=== PATIENT | female | born 1970 | race Caucasian/White ===

== ENCOUNTER 2018-01-07 11:41 | Emergency (ER) | payer OTHER ==
[2018-01-07 11:41] VITALS: BMI 39.4
[2018-01-07 11:55] VITALS: BP 161/77; PULSE 85; RESP 16; TEMP 98.1; O2SAT 98
--- NOTE | 2018-01-07 12:01 | ED PDOC ---
Arrival/HPI - General Chief Complaint: Foreign Body Time Seen by Provider: 01/07/18 11:51 Historian: Patient - History of Present Illness Narrative History of Present Illness (Text): 01/07/18 11:58 47yo female present with complaint of lodged cotton wool tip to her right ear x 2days. States she tried to remove it and couldn't. Complaining of pain to the ear. Denies fever, chills, discharge or bleeding from the ear. Past Medical History - Provider Review Nursing Documentation Reviewed: Yes - Infectious Disease Hx of Infectious Diseases: None - Reproductive Menopause: Yes - Cardiac Hx Cardiac Disorders: No - Pulmonary Hx Respiratory Disorders: No - Neurological Hx Neurological Disorder: No - HEENT Hx HEENT Disorder: No - Renal Hx Renal Disorder: No - Endocrine/Metabolic Hx Endocrine Disorders: No - Hematological/Oncological Hx Blood Disorders: Yes Hx Hepatitis C: Yes - Integumentary Hx Dermatological Disorder: No - Musculoskeletal/Rheumatological Hx Musculoskeletal Disorders: No - Gastrointestinal Hx Gastrointestinal Disorders: No - Genitourinary/Gynecological Hx Genitourinary Disorders: No - Psychiatric Hx Psychophysiologic Disorder: No Hx Substance Use: No - Anesthesia Hx Anesthesia: No Family/Social History - Physician Review Nursing Documentation Reviewed: Yes Family/Social History: Unknown Family HX Smoking Status: Never Smoked Hx Alcohol Use: No Hx Substance Use: No Allergies/Home Meds Allergies/Adverse Reactions: Allergies No Known Allergies Allergy (Verified 01/07/18 11:48) Review of Systems - Physician Review All systems were reviewed & negative as marked: Yes - Review of Systems Constitutional: Normal Eyes: Normal ENT: Other (Right ear pain/lodged FB) Respiratory: Normal Cardiovascular: Normal Gastrointestinal: Normal Genitourinary Female: Normal Musculoskeletal: Normal Skin: Normal Neurological: Normal Endocrine: Normal Hemo/Lymphatic: Normal Psychiatric: Normal Physical Exam Vital Signs Reviewed: Yes Vital Signs Temp Pulse Resp BP Pulse Ox 01/07/18 11:48 98.1 F 85 16 161/77 H 98 Temperature: Afebrile Blood Pressure: Normal Pulse: Regular Respiratory Rate: Normal Appearance: Positive for: Well-Appearing, Non-Toxic, Comfortable Pain Distress: None Mental Status: Positive for: Alert and Oriented X 3 - Systems Exam Head: Present: Atraumatic, Normocephalic Pupils: Present: PERRL Extroacular Muscles: Present: EOMI Conjunctiva: Present: Normal Ears: Present: Other (Cotton tip noted on right TM) Mouth: Present: Moist Mucous Membranes Neck: Present: Normal Range of Motion Respiratory/Chest: Present: Clear to Auscultation, Good Air Exchange. No: Respiratory Distress, Accessory Muscle Use Cardiovascular: Present: Regular Rate and Rhythm, Normal S1, S2. No: Murmurs Abdomen: No: Tenderness, Distention, Peritoneal Signs Back: Present: Normal Inspection Upper Extremity: Present: Normal Inspection. No: Cyanosis, Edema Lower Extremity: Present: Normal Inspection. No: Edema Neurological: Present: GCS=15, CN II-XII Intact, Speech Normal Skin: Present: Warm, Dry, Normal Color. No: Rashes Psychiatric: Present: Alert, Oriented x 3, Normal Insight, Normal Concentration Medical Decision Making ED Course and Treatment: 01/07/18 12:01 PT present for stated history. Cotton tip removed with small alligator clamp. No bleeding. No discharge noted. Pt have pain with manipulation of the right pinna and tenderness on palpation of posterior right ear. She will be DC home with cipro otic for super imposed otitis externa. Disposition/Present on Arrival - Present on Arrival Any Indicators Present on Arrival: No History of DVT/PE: No History of Uncontrolled Diabetes: No Urinary Catheter: No History of Decub. Ulcer: No History Surgical Site Infection Following: None - Disposition Have Diagnosis and Disposition been Completed?: Yes Diagnosis: Foreign body, Otitis externa Disposition: HOME/ ROUTINE Disposition Time: 12:05 Patient Plan: Discharge Condition: STABLE Discharge Instructions (ExitCare): Outer Ear Infection (DC) Additional Instructions: Apply drops as directed and follow up with your Doctor Return to Emergency department for any new or worsening symptoms Prescriptions: Ciprofloxacin/Dexamethasone [Ciprodex Otic] 75 drop BID #4 bottle Referrals: Tawanda Ma DO [Staff Provider] - Follow up with primary
== END 2018-01-07 12:23 | disposition home or self-care (01) ==
LOC: ED 11:41
DX: T16.1XXA Foreign body in right ear, initial encounter (principal); Y93.E8 Activity, other personal hygiene; H60.90 Unspecified otitis externa, unspecified ear